=== PATIENT | female | born 1970 | race Hispanic/Latino ===

== ENCOUNTER 2022-03-27 21:22 | Emergency (ER) | payer OTHER ==
[~2022-03-27] VITALS: Ht 157.5 cm; Wt 68.9 kg
[2022-03-27 21:23] VITALS: BP 149/85
[2022-03-27] MEDS ORDERED: FAMOTIDINE 20MG TAB PO ONE (21:30)
[2022-03-27] MEDS ORDERED: IBUPROFEN 800 MG TAB PO ONE (21:30)
[2022-03-27] MEDS ORDERED: DIPH,PERTUSS(ACELL),TET VAC/PF 0.5 ML VIAL IM ONE ×2 (21:30)
[2022-03-27] MEDS ORDERED: AMOX-427 PO (21:36)
[2022-03-27] MEDS ORDERED: IBUP-1493 PO (21:36)
[2022-03-27] MEDS ORDERED: TETANUS/DIPHTHERIA TOXOID [ADULT] 0.5 ML VIAL IM ONE (21:45)
== END 2022-03-27 22:28 | disposition home or self-care (01) ==
LOC: EDH 21:22
DX: S91.052A Open bite, left ankle, initial encounter (principal); W54.0XXA Bitten by dog, initial encounter; Y93.89 Activity, other specified; Y92.89 Other specified places as the place of occurrence of the external cause; Y99.8 Other external cause status
CPT/HCPCS: 90471; 90472; 90714; 90715

== ENCOUNTER → 2023-02-19 | Outpatient (CLI) | payer OTHER ==
[~2023-02-19] MED LIST: AMOX-427 PO; IBUP-1493 PO
== END | disposition home or self-care (01) ==
LOC: SHCH 12:33
PROVIDERS: ATTEND Internal Medicine
DX: I07.1 Rheumatic tricuspid insufficiency (principal)
CPT/HCPCS: 93306

== ENCOUNTER → 2024-02-20 | Outpatient (CLI) | payer OTHER ==
[2024-02-20 21:55] VITALS: PULSE 79; RESP 16
[2024-02-20 22:33] VITALS: PULSE 81; RESP 16
[2024-02-20 23:00] VITALS: PULSE 85; RESP 16
[2024-02-20 23:37] VITALS: PULSE 86; RESP 14
[2024-02-20 23:57] VITALS: PULSE 82; RESP 12
[2024-02-21] VITALS (10 sets, daily range): PULSE 66–83; RESP 12–16
== END | disposition home or self-care (01) ==
LOC: SLP 20:30
PROVIDERS: ATTEND Family Medicine
DX: G47.30 Sleep apnea, unspecified (principal)
CPT/HCPCS: 95810

== ENCOUNTER → 2024-03-28 | Outpatient (CLI) | payer OTHER ==
[2024-03-28 22:22] VITALS: PULSE 88; RESP 20
[2024-03-28 22:53] VITALS: PULSE 82; RESP 16
[2024-03-28 23:27] VITALS: PULSE 80; RESP 14
[2024-03-28 23:56] VITALS: PULSE 101; RESP 19
[2024-03-29] VITALS (12 sets, daily range): PULSE 71–85; RESP 13–16
== END | disposition home or self-care (01) ==
LOC: SLP 20:28
PROVIDERS: ATTEND Family Medicine
DX: G47.30 Sleep apnea, unspecified (principal)
CPT/HCPCS: 95811